=== PATIENT | male | born 1980 | race Caucasian/White ===

== ENCOUNTER 2019-09-26 06:10 | Emergency (ER) | payer SELFPAY ==
[2019-09-26] MEDS ORDERED: Adacel (T-DAP) 0.5 ML SYRINGE ONE (06:30)
[2019-09-26] MEDS ORDERED: Lidocaine 1% (PF) 30 ML VIAL ONE (06:58)
[2019-09-26] MEDS ORDERED: Cephalexin 250 MG CAP ONE (07:19)
[2019-09-26] MEDS ORDERED: Sulfameth/Trimethoprim DS 800-160mg TAB ONE (07:19)
== END 2019-09-26 07:33 | disposition home or self-care (01) ==
LOC: NAV ERS 06:10
DX: L02.413 Cutaneous abscess of right upper limb (principal); F17.210 Nicotine dependence, cigarettes, uncomplicated; Z71.6 Tobacco abuse counseling
CPT/HCPCS: 10060; 90471; 90715; 99406; J2001

== ENCOUNTER 2019-09-27 19:52 | Emergency (ER) | payer SELFPAY | END 2019-09-27 20:32 | disposition home or self-care (01) | LOC: NAV ERS 19:52 | DX: Z48.817 Encounter for surgical aftercare following surgery on the skin and subcutaneous tissue (principal); F17.210 Nicotine dependence, cigarettes, uncomplicated | CPT/HCPCS: 99282 ==

== ENCOUNTER 2019-09-30 09:30 | Emergency (ER) | payer SELFPAY | END 2019-09-30 09:59 | disposition home or self-care (01) | LOC: NAV ERS 09:30 | DX: Z48.817 Encounter for surgical aftercare following surgery on the skin and subcutaneous tissue (principal); F17.210 Nicotine dependence, cigarettes, uncomplicated | CPT/HCPCS: 99282 ==